=== PATIENT | female | born 1980 | race Two or more races ===

== ENCOUNTER 2018-11-13 20:03 | Emergency (ER) | payer MEDICAID ==
[~2018-11-13] VITALS: Ht 175.3 cm; Wt 99.8 kg
[2018-11-13 20:15] VITALS: BP 106/61
== END 2018-11-13 20:55 | disposition left against medical advice (07) ==
LOC: ER 20:06
DX: R11.2 Nausea with vomiting, unspecified (principal); R19.7 Diarrhea, unspecified; Z53.21 Procedure and treatment not carried out due to patient leaving prior to being seen by health care provider